=== PATIENT | male | born 1950 | race Caucasian/White ===

== ENCOUNTER 2017-05-05 16:35 | Inpatient (IN) | payer BC, OTHER ==
[~2017-05-05] VITALS: Ht 188 cm; Wt 102.9 kg
--- NOTE | ~2017-05-05 | HC ---
[facility] [address] CONSULTATION Name: CANDI FRANCO Room #: 212-P [facility] IN M.R.#: [id number] Admission: 05/05/17 Attend Phys: Adam Whitten MD Discharge: 05/08/17 Date of : 54 Report #: [id number] THIS REPORT FOR: //name// CC: Forrest Whitten CARDIOLOGY CONSULTATION HISTORY OF PRESENT ILLNESS: The patient is a 66-year-old male with no prior cardiac history. He has been having some progressive dyspnea and shortness of breath for the last few days and was felt like he had flu symptoms last week. He had been having intermittent fever and then progressively more short of breath. Fevers up to 101. He presented to the Emergency Room with what looks like pneumonia on a chest x-ray. CTA was negative for PE. Had a slight troponin, 0.54, probably not significant, presumed secondary to the AFib, rapid ventricular response, which was initially in the 150s. He was hemodynamically stable with this. He has more of a pleuritic complaint of chest pain, but he has never had any documented coronary artery disease and minimal risk factors for coronary artery disease, except diabetes. He, otherwise, exercises regularly. He takes only metformin at home. His creatinine was 0.9. Troponin 0.54 and 0.48. Blood gas had mild hypoxemia with initial O2 of 61%. EKG shows AFib, rapid ventricular response. Also has a white count elevation with mild bandemia, consistent with his infectious process. ALLERGIES: No known drug allergies. PAST MEDICAL HISTORY: Positive for the recent diabetes, some mild arthritic issues. Former tobacco user. SOCIAL HISTORY: He is . Social alcohol. No tobacco. Very active. FAMILY HISTORY: Negative for premature coronary disease. REVIEW OF SYSTEMS: Positive only for some occasional nocturia and hesitancy. PHYSICAL EXAMINATION: GENERAL: He is still mildly dyspneic with an intermittent cough, not in significant distress. VITAL SIGNS: Rates are improved, but still needs better around 100. Blood pressure 108/70. HEENT: Eyes reveal no xanthelasmas. Pharynx is clear. NECK: Shows preserved upstrokes, without JVD or bruits. LUNGS: Few end-expiratory wheezes and there are some coarse sounds in the right base. CARDIAC EXAMINATION: Distant heart tones. Irregularly irregular, S1, S2. ABDOMEN: Soft. No HSM or abdominal bruit. [facility] [address] [place] [address] CONSULTATION Name: CANDI FRANCO Room #: 212-P DIS IN M.R.#: [id number] Admission: 05/05/17 Attend Phys: Adam Whitten MD Discharge: 05/08/17 Date of : 54 Report #: [id number] EXTREMITIES: Reveal trace edema. Distal pulses are intact. NEUROLOGIC: Nonfocal. SKIN: Warm and dry, without xanthoma or ulcer. MUSCULOSKELETAL: No gross joint deformity. ASSESSMENT: 1. Pneumonia. 2. Atrial fibrillation, rapid ventricular response, probable secondary to pneumonia. 3. Trivial troponin elevation, probably not representing a true epicardial ischemia, but I suspect a hypoxemia and rapid ventricular response was persistent for some time. We will evaluate for underlying coronary artery disease further. 4. Diabetes. RECOMMENDATIONS AND PLAN: Cardizem drip. We will switch to p.o. Cardizem and Toprol. Echo Doppler currently being completed and looks to have some mild right-sided enlargement. We will also check it, although CTA was negative for PE. Pulmonary pressures look to be in the 30s on this echo. We will get lower extremity venous study to confirm there is no lower extremity clot. Anticoagulation, we will continue b.i.d. with Lovenox. May convert; If not, we would continue anticoagulation at discharge and then attempt cardioversion in 30 days or so. Also, will need evaluation for his coronary status, either in or outpatient. He looks to be here a few days based on this pneumonia. This plan has been discussed with the patient. I would also initiate statin therapy based on his underlying diabetes and he will be an excellent candidate for an additional SGLT2 inhibitors for his diabetes; Jardiance 10 mg a day, which we will initiate as an outpatient. We will continue to follow with you. Thank you for asking us to assist in the care of this patient. <ELECTRONICALLY SIGNED> By: Osmar Douglas MD, [facility] 05/14/17 [id number] 1003 Osmar Douglas MD, FACC /nt
--- NOTE | ~2017-05-05 | 2DMMODE ---
[facility] [address] [place] [address] 2 D/M-MODE ECHOCARDIOGRAM Name: CANDI FRANCO Room #: 212-P [facility] IN .R.#: [id number] Admission: 05/05/17 Attend Phys: Adam Whitten, Discharge: Date of : 54 Date of Service: 05/06/17 1013 Report #: [id number] THIS REPORT FOR: //name// APPROVED REPORT Study performed: 05/06/2017 08:45:03 EXAM: Comprehensive 2D, Doppler, and color-flow Echocardiogram Patient Location: Bedside Room #: [facility] Status: routine BSA: 2.29 HR: 105 bpm BP: 108/71 mmHg Other Information Study Quality: Good Indications Diabetes Atrial Fibrillation Dyspnea 2D Dimensions RVDd: 46.43 mm LVEF(%): 42.84 (>50%) IVSd: 14.06 (7-11mm) LVOT Diam: 25.43 (18-24mm) LVDd: 53.75 mm PWd: 11.57 (7-11mm) Ascending Ao: 31.93 (22-36mm) LVDs: 42.30 (25-40mm) Aortic Root: 35.02 mm IVC: 24.00 mm Moreno's LVEF: 42.84 % Volumes Left Atrial Volume (Systole) Single Plane 4CH: 113.98 mL Single Plane 2CH: 100.68 mL LA ESV Index: 51.00 mL/m2 Aortic Valve AoV Peak Rodolfo.: 1.14 m/s AO Peak Gr.: 5.21 mmHg LVOT Max P.82 mmHg LVOT Max V: 0.67 m/s UMANG Vmax: 3.00 cm2 AI Vmax: 4.25 m/s AI [place]ou: 2.66 m/s2 AI PHT: 468.73 ms [facility] [place] [address] 2 D/M-MODE ECHOCARDIOGRAM Name: CANDI FRANCO Room #: 212-P ADM IN M.R.#: [id number] Admission: 05/05/17 Attend Phys: Adam Whitten, Discharge: Date of : 54 Date of Service: 05/06/17 1013 Report #: [id number] Mitral Valve MV Decel. Time: 178.32 ms MV E Max Rodolfo.: 0.94 m/s IVRT: 92.27 ms Pulmonary Valve PV Peak Rodolfo.: 0.82 m/s PV Peak Gr.: 2.69 mmHg Tricuspid Valve TR Peak Rodolfo.: 2.74 m/s TR Peak Gr.: 30.09 mmHg PA Pressure: 45.00 mmHg Left Ventricle Left ventricle is at the upper limits of normal. There is global hypokinesis of the left ventricle. Mild concentric left ventricular hypertrophy. Left ventricular systolic function is mildly decreased. LVEF is 40-45%. This study is not technically sufficient to allow evaluation of the LV diastolic function due to atrial fibrillation. Right Ventricle Right ventricle is dilated. Right ventricle is mildly hypokinetic. Atria Left atrium is dilated. Right atrium is dilated. Aortic Valve The aortic valve is normal in structure. Mild to moderate aortic regurgitation. There is no aortic valvular stenosis. Mitral Valve The mitral valve is normal in structure. Moderate mitral regurgitation. No evidence of mitral valve stenosis. Tricuspid Valve The tricuspid valve is normal in structure. There is mild tricuspid regurgitation. Estimated PAP 45 mmHg. There is moderate pulmonary hypertension. Pulmonic Valve The pulmonary valve is normal in structure. Mild pulmonic regurgitation. [facility] [address] [place] [address] 2 D/M-MODE ECHOCARDIOGRAM Name: CANDI FRANCO Room #: 212-P [facility] IN .R.#: [id number] Admission: 05/05/17 Attend Phys: Adam Whitten, Discharge: Date of : 54 Date of Service: 05/06/17 1013 Report #: [id number] Great Vessels The aortic root is normal in size. The inferior vena cava is dilated with no inspiratory collapse. Pericardium There is no pericardial effusion. <Conclusion> Left ventricle is at the upper limits of normal. Mild concentric left ventricular hypertrophy. Left ventricular systolic function is mildly decreased. LVEF is 40-45%. This study is not technically sufficient to allow evaluation of the LV diastolic function due to atrial fibrillation. Right ventricle is dilated. Right ventricle is mildly hypokinetic. Left atrium is dilated. Right atrium is dilated. The aortic valve is normal in structure. Moderate mitral regurgitation. There is mild tricuspid regurgitation. Estimated PAP 45 mmHg. There is moderate pulmonary hypertension. There is no pericardial effusion. <ELECTRONICALLY SIGNED> By: Osmar Douglas MD, FACC 05/06/17 1013 1013 1013 Osmar Douglas MD, FACC /INF
--- NOTE | ~2017-05-05 | EKG ---
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 : 1950 Requested By: Juliann Pratt Order Number: [id number] MD: Mario Alberto Aparicio Measurements Intervals [place] Rate: 143 P: NE: QRS: 9 QRSD: 94 T: 84 QT: 291 QTc: 449 Interpretive Statements Atrial fibrillation Nonspecific repol abnormality Compared to ECG 07/30/2000 14:07:50 Atrial fibrillation is replaced sinus rhythm Premature ventricular complexes are no longer present Electronically Signed On 05-06-2017 15:49:54 C[employer]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
--- NOTE | ~2017-05-05 | EKG ---
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 : 1950 Requested By: Juliann Pratt Order Number: [id number] MD: Mario Alberto Aparicio Measurements Intervals [place] Rate: 124 P: AR: QRS: 20 QRSD: 85 T: 87 QT: 309 QTc: 444 Interpretive Statements Atrial fibrillation Nonspecific ST segment abnormality Compared to ECG 07/30/2000 14:07:50 No significant change was found Electronically Signed On 05-06-2017 15:51:33 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
[2017-05-05 16:35] VITALS: BP 141/86
[2017-05-05] MEDS ORDERED: CENTRUM SILVER1 EAC2 PO (16:51)
[2017-05-05] MEDS ORDERED: VITAMIN D1000 UNIT PO (16:52)
[2017-05-05 16:59] LABS: ABSOLUTE NEUTROPHILS 13.4 thou/uL (1.4-8.2); BASOPHILS 0.4 % (0.0-2.0); EOSINOPHILS 0.1 % (0.0-3.0); HEMATOCRIT 40.8 % (42.0-52.0); HEMOGLOBIN 13.9 gm/dL (14.0-18.0); LYMPHOCYTES 8.3 % (24.0-44.0); MCH 29.2 pg (26.0-34.0); MCHC 34.2 g/dL (28.0-37.0); MCV 85.4 fL (80.0-100.0); MONOCYTES 10.9 % (1.0-8.0); PLATELET COUNT 168 thou/uL (150-400); POLYS 80.3 % (36.0-66.0); RBC 4.77 mil/uL (4.50-6.00); RDW 13.9 % (10.5-14.5); WBC 16.7 thou/uL (4.0-11.0)
[2017-05-05 17:08] LABS: CALCIUM 8.9 mg/dL (8.5-10.1); CREATININE 0.9 mg/dL (0.7-1.3); POTASSIUM 4.5 mmol/L (3.5-5.1)
[2017-05-05 17:16] LABS: TROPONIN-I 0.54 ng/mL (<0.06)
[2017-05-05 18:54] LABS: BE(vivo) -0.2 mmol/L (-2 to +3); HCO3 22.8 mmol/L (22.0-26.0); PCO2 32.3 mmHg (35.0-45.0); PO2 61.3 mmHg (80.0-100.0); pH 7.466 (7.360-7.450); sO2 93.1 % (92.0-98.0)
[2017-05-05 20:04] VITALS: BP 119/76
[2017-05-05 23:17] VITALS: BP 94/56
[2017-05-06] VITALS (11 sets, daily range): BP systolic 92–118; BP diastolic 56–85
[2017-05-06 02:08] LABS: GLYCOHEMOGLOBIN (HGB A1C) 9.2 % (4.8-5.6)
[2017-05-06 04:39] LABS: HEMATOCRIT 36.5 % (42.0-52.0); HEMOGLOBIN 12.4 gm/dL (14.0-18.0); MCH 29.4 pg (26.0-34.0); MCHC 34.1 g/dL (28.0-37.0); MCV 86.4 fL (80.0-100.0); RBC 4.22 mil/uL (4.50-6.00); RDW 13.9 % (10.5-14.5); WBC 11.7 thou/uL (4.0-11.0)
[2017-05-06 04:54] LABS: CALCIUM 7.9 mg/dL (8.5-10.1); CREATININE 0.9 mg/dL (0.7-1.3); MAGNESIUM 1.8 mg/dL (1.8-2.4); POTASSIUM 4.1 mmol/L (3.5-5.1); TROPONIN-I 0.48 ng/mL (<0.06)
[2017-05-07 05:58] VITALS: BP 103/66
[2017-05-07 05:59] LABS: HEMOGLOBIN 12.8 gm/dL (14.0-18.0); MCHC 33.8 g/dL (28.0-37.0); MCV 85.6 fL (80.0-100.0); RBC 4.43 mil/uL (4.50-6.00); RDW 13.9 % (10.5-14.5)
[2017-05-07 06:13] LABS: CALCIUM 8.3 mg/dL (8.5-10.1); CREATININE 0.8 mg/dL (0.7-1.3); MAGNESIUM 1.8 mg/dL (1.8-2.4)
[2017-05-07 08:13] VITALS: BP 137/82
[2017-05-07 11:36] VITALS: BP 115/78
[2017-05-07 16:08] VITALS: BP 130/70
[2017-05-07 19:50] VITALS: BP 138/87
[2017-05-08 04:30] VITALS: BP 118/70
[2017-05-08 06:27] LABS: HEMOGLOBIN 13.7 gm/dL (14.0-18.0); MCH 29.4 pg (26.0-34.0); MCHC 34.3 g/dL (28.0-37.0); MCV 85.8 fL (80.0-100.0); RBC 4.66 mil/uL (4.50-6.00); WBC 8.2 thou/uL (4.0-11.0)
[2017-05-08 06:37] LABS: CALCIUM 8.4 mg/dL (8.5-10.1); CREATININE 0.9 mg/dL (0.7-1.3); MAGNESIUM 1.7 mg/dL (1.8-2.4); POTASSIUM 4.1 mmol/L (3.5-5.1)
[2017-05-08 08:08] VITALS: BP 129/82
[2017-05-08 08:29] LABS: CHOLESTEROL 143 mg/dL (<200); HDL CHOLESTEROL 34 mg/dL (>40); LDL CHOLESTEROL 93 mg/dL (<100); TC:HDL 4.2 Ratio (Not establshd); TRIGLYCERIDE 84 mg/dL (<150); VLDL 17 mg/dL (<40)
[2017-05-08 11:57] VITALS: BP 108/76
[2017-05-08] MEDS ORDERED: ELIQUIS5 MG PO (12:16)
[2017-05-08] MEDS ORDERED: ATORVASTATIN CA10 MG PO (12:17)
[2017-05-08] MEDS ORDERED: CARDIZEM CD120 MG PO (12:18)
[2017-05-08] MEDS ORDERED: ATENOLOL 50MG T50 MG PO (12:18)
[2017-05-08] MEDS ORDERED: COZAAR 50 MG TA50 M1 PO (12:19)
[2017-05-08] MEDS ORDERED: HYDROCHLOROTH12.5 M1 PO (12:19)
[2017-05-08] MEDS ORDERED: MUCINEX600 MG PO (12:19)
[2017-05-08] MEDS ORDERED: LEVEMIR SUBQ (12:28)
[2017-05-08] MEDS ORDERED: INSULIN SYRING1 EA33 SUBQ (12:30)
[2017-05-08] MEDS ORDERED: NOVOLOG100 UNIT/1 SUBQ (12:34)
[2017-05-08] MEDS ORDERED: 1ST TIER UNILE1 EAC1 SUBQ (12:35)
[2017-05-08] MEDS ORDERED: ACCUNEB SO1.25 MG/1 INH (12:39)
[2017-05-08] MEDS ORDERED: LEVOFLOXACIN750 MG PO (12:39)
[2017-05-08 15:12] VITALS: BP 108/76
[2017-05-08 15:39] VITALS: BP 108/76
== END 2017-05-08 16:53 | disposition home or self-care (01) | DRG 871 ==
LOC: ER 16:35 → 2N 18:34 → EROBS 18:34 → 2N 19:45 → ENTRNSPT 05-08 16:25 → 2N 05-08 16:53
PROVIDERS: Emergency Medicine; Internal Medicine; Internal Medicine Cardiovascular Disease
DX: A41.9 Sepsis, unspecified organism (principal); I21.4 Non-ST elevation (NSTEMI) myocardial infarction; J18.9 Pneumonia, unspecified organism; I48.91 Unspecified atrial fibrillation; E11.9 Type 2 diabetes mellitus without complications; Z23 Encounter for immunization; Z87.891 Personal history of nicotine dependence
CPT/HCPCS: 10194

== ENCOUNTER → 2019-12-08 | Outpatient (CLI) | payer OTHER, BC ==
[~2019-12-08] MED LIST: 1ST TIER UNILE1 EAC1 SUBQ; ACCUNEB SO1.25 MG/1 INH; ATENOLOL 50MG T50 MG PO; ATORVASTATIN CA10 MG PO; CARDIZEM CD120 MG PO; CENTRUM SILVER1 EAC2 PO; COZAAR 50 MG TA50 M1 PO; ELIQUIS5 MG PO; HYDROCHLOROTH12.5 M1 PO; INSULIN SYRING1 EA33 SUBQ; LEVEMIR SUBQ; LEVOFLOXACIN750 MG PO; MUCINEX600 MG PO; NOVOLOG100 UNIT/1 SUBQ; VITAMIN D1000 UNIT PO
== END ==
LOC: SJCVCIMAG 09:51 → SJCVC 09:51 → SJCVCIMAG 10:49
PROVIDERS: ATTEND Internal Medicine Cardiovascular Disease
DX: I08.3 Combined rheumatic disorders of mitral, aortic and tricuspid valves (principal); R94.31 Abnormal electrocardiogram [ECG] [EKG]; I48.91 Unspecified atrial fibrillation; I11.9 Hypertensive heart disease without heart failure; I27.20 Pulmonary hypertension, unspecified; E78.00 Pure hypercholesterolemia, unspecified; E11.9 Type 2 diabetes mellitus without complications; Z79.899 Other long term (current) drug therapy; Z87.891 Personal history of nicotine dependence

== ENCOUNTER → 2019-12-08 | Outpatient (CLI) | payer OTHER | LOC: CAT 11:34 | PROVIDERS: ATTEND Internal Medicine Cardiovascular Disease | DX: Z13.6 Encounter for screening for cardiovascular disorders (principal); I25.10 Atherosclerotic heart disease of native coronary artery without angina pectoris; E78.00 Pure hypercholesterolemia, unspecified ==

== ENCOUNTER → 2020-01-11 | Outpatient (CLI) | payer OTHER | LOC: SJCVC 13:33 | PROVIDERS: ATTEND Internal Medicine Cardiovascular Disease | DX: I48.91 Unspecified atrial fibrillation (principal); R94.31 Abnormal electrocardiogram [ECG] [EKG]; Z79.899 Other long term (current) drug therapy; Z87.891 Personal history of nicotine dependence ==

== ENCOUNTER → 2020-01-20 | Outpatient (CLI) | payer OTHER | LOC: LAB 09:09 | PROVIDERS: ATTEND Internal Medicine Cardiovascular Disease | DX: Z01.812 Encounter for preprocedural laboratory examination (principal); Z20.828 Contact with and (suspected) exposure to other viral communicable diseases ==